=== PATIENT | male | born 1935 | race Caucasian/White ===

== ENCOUNTER 2017-11-25 12:14 | Day surgery (SDC) | payer MEDICARE, BC ==
--- NOTE | 2017-11-25 08:57 | HP ---
DATE OF SURGERY: 11/25/2017 HISTORY OF PRESENT ILLNESS: The patient is an 82 year-old who had prior cholecystectomy in the past, had some loose stools. He had history of some chronic pancreatitis in the past. He has incarcerated ventral hernia lower epigastrium. He may also have an additional defect at the umbilical area. Given these areas I feel he will benefit from laparoscopic repair possible open with mesh. PAST MEDICAL HISTORY: He has had some chronic pancreas problems. He had some hypertension, hypothyroidism, some reflux, hypercholesterolemia, some benign prostatic hypertrophy, history of chronic pancreatitis, emphysema, history of some low back pain. PAST SURGICAL HISTORY: He has had cholecystectomy in the past. He had cataract surgery in the past. MEDICATIONS: Valproic acid, Claritin, vitamin D3, fish oil, famotidine, levothyroxine, lisinopril, magnesium, melatonin, pantoprazole, saw palmetto, selenium, simvastatin, super B complex with vitamin C, Tamsulosin, vitamin B6, vitamin B12, zinc. ALLERGIES: CIPRO, FLAGYL, LIVE SMALL POX VACCINE, TETANUS TOXID. FAMILY HISTORY: Heart disease, diabetes. SOCIAL HISTORY: Former smoker. No alcohol abuse. REVIEW OF SYSTEMS: Twelve systems reviewed per admission assessment. No chest pain or palpitations other systems negative or noncontributory as above and per preadmission questionnaire. PHYSICAL EXAMINATION: GENERAL: No acute distress. HEENT: Sclerae nonicteric. NECK: No JVD. CHEST: Equal excursion, nonlabored breathing. CVS: Regular rate and rhythm. ABDOMEN: Soft. He has hernia in the mid abdomen along the prior incisional area from prior cholecystectomy, maybe a small area umbilical area. IMPRESSION: Given these defects I feel he would benefit from laparoscopic repair of incarcerated ventral hernia with mesh possible open with mesh, general risk of anesthesia, deep venous thrombosis, pulmonary embolism, pneumonia, general risk of hematoma or seroma formation, risk of ingrown hair or suture reaction, risk of mesh infection possibly requiring removal, overall risk of hernia recurrence, risk of adhesion or scar formation, obstruction or ileus postoperatively, remote risk of mesh fracture or failure possibly creating issue with the viscera or other structures possibly requiring other procedure, ongoing morbidity, risk of mesh infection possibly requiring removal, general risk of aches, pains, burning or numbness possible long term care phlebotomist or chronic in nature as well as overall risk of anesthesia, deep venous thrombosis, pulmonary embolism pneumonia. He understands all of the above but not limited to, will proceed with laparoscopic repair of incarcerated ventral hernia with mesh possible open.
[~2017-11-25 12:14] MED LIST: CEFAZOLIN 2 GM-D5W BAG** 2 GM/50 ML ML IV SCH; Lactated Ringers 1,000 ML IV ONE; Lactated Ringers 1,000 ML IV SCH; Sensorcaine 0.25% 10 ML ONE
[2017-11-25] MEDS ORDERED: BREVIBLOC 100 MG/10 ML IV ONE (12:15)
[2017-11-25] MEDS ORDERED: DIPRIVAN 200 MG/20 ML IV ONE (12:15)
[2017-11-25] MEDS ORDERED: Zemuron 100 MG/10 ML IJ ONE ×2 (12:15)
[2017-11-25] MEDS ORDERED: BRIDION 200MG/2ML IV ONE (12:15)
[2017-11-25] MEDS ORDERED: ROBINUL IV ONE (12:15)
[2017-11-25] MEDS ORDERED: Zofran 4 MG/2 ML VIAL IV ONE (12:15)
[2017-11-25] MEDS ORDERED: Sensorcaine 0.25% 10 ML ONE (15:03)
[2017-11-25 15:52] LABS: Appearance CLEAR (CLEAR)
[2017-11-25 15:54] LABS: Bilirubin NEGATIVE (NEGATIVE); Blood TRACE NON-HEM Ery/ul (0-5); Glucose NEGATIVE (NEGATIVE); Ketones NEGATIVE (NEGATIVE); Leukocyte Esterase NEGATIVE (NEGATIVE); Nitrite NEGATIVE (NEGATIVE); Protein,Urine Dip NEGATIVE (Negative); Specific Gravity 1.005 (1.005-1.025); Urobilinogen NORMAL mg/dL (0-1)
[2017-11-25 15:56] LABS: WBC 0-2 /HPF (0-5)
[2017-11-25 15:59] LABS: Epithelial Cells RARE /HPF (FEW)
[2017-11-25] MEDS ORDERED: MORPHINE SULFATE 10 MG/ML ONE (16:46)
[2017-11-25] MEDS ORDERED: SUBLIMAZE 100 MCG/2 ML ONE (16:51)
[2017-11-25] MEDS ORDERED: ZOCOR 20MG PO SCH (22:00)
[2017-11-25] MEDS ORDERED: Zestril 20 MG*** 20 MG, hydroDIURIL 25 MG*** 12.5 MG PO SCH ×2 (22:00)
[2017-11-25] MEDS ORDERED: Flomax 0.4 MG PO SCH (22:00)
[2017-11-25] MEDS ORDERED: Zofran 4 MG/2 ML VIAL IV PRN (22:49)
[2017-11-25] MEDS ORDERED: MORPHINE SULFATE 4 MG INJ ONE (22:58)
[2017-11-25] MEDS ORDERED: hydroDIURIL 25 MG ONE (22:58)
[2017-11-25] MEDS ORDERED: Zestril 20 MG ONE (22:59)
[2017-11-25] MEDS ORDERED: D5W/0.45NS W/ 20mEq KCl 1000 ML 1,000 ML IV SCH (23:00)
[2017-11-25] MEDS: MORPHINE SULFATE 2 MG INJ IV PRN (23:12)
[2017-11-26] MEDS: MORPHINE SULFATE 2 MG INJ IV PRN ×2 (01:18→04:24)
[2017-11-26] MEDS: NORCO 5/325 MG PO PRN ×2 (03:08→13:46)
--- NOTE | 2017-11-26 09:13 | OP ---
SURGERY DATE/TIME: 11/25/2017 1457 PREOPERATIVE DIAGNOSIS: Ventral incisional hernia incarcerated. POSTOPERATIVE DIAGNOSIS: Ventral incisional hernia including second site separate umbilical area hernia both incarcerated both incarcerated ventral incisional hernia and separate umbilical hernia with mesh repair en bloc with single piece of mesh. PROCEDURE: Laparoscopic repair incarcerated ventral incisional hernia with mesh. SURGEON: Dr. Otis Ross. CARD GRINDER: Sang Shore, Medical Student III. ANESTHESIA: General. ESTIMATED BLOOD LOSS: Minimal. INDICATIONS: As noted above. Risks and benefits explained in detail and not limited to and consent obtained. DESCRIPTION OF PROCEDURE AND FINDINGS: The patient is taken to the operating room. General anesthesia induced. After official time out and no disagreement with planned procedure, prepped and draped in usual sterile fashion. A transverse incision made in mid abdomen. Veress needle inserted and tested with saline. Pneumoperitoneum accomplished, opening pressure 0 to 15. After this was done 5 mm bladeless port and camera inserted left mid abdomen. A 5 mm left upper quadrant port and 5 mm left lower quadrant under direct vision of the camera. Later a 5 mm right mid abdomen port placed. At this point the patient is noted to have two separate incarcerated ventral and incisional hernia. Omentum carefully reduced out with LigaSure device. Sharp dissection laparoscopic valeriy this was followed by a second separate site of small umbilical hernia more inferiorly. There was also incarcerated fat reduced out of it and removed. It was felt that both of these hernias repaired en bloc together with one single piece of mesh rather than two separate pieces of mesh. The area was measured out. There is no ACRO mesh available here today. I feel the most appropriate size mesh that was wide enough 20 cm long mesh was cut to appropriate dimensions with the nearly 13 cm long by about 10 cm wide. The mesh was cut the Ventralight coated mesh was used. Using spinal incision reducing the pressure down to the 18 range the edges of the hernias were marked. Again, the most appropriate size mesh available at this facility was used once the mesh four quadrant 0 Ethibond sutures placed externally. Prior to placing the mesh inside the abdomen some transfascial sutures were placed with 0 and #1 PDS and closed in the [place] fashion back together. The 12 port placed along the defect allowing the roll mesh to be inserted after it had been wet. However, four sutures were then pulled up the four quadrants in tension-free manner with the suture passer through four separate stab wounds with the skin. Once they were pulled up and the mesh in nice and flat manner the capture tacker was then used to try to tack the mesh circumferentially around about 1 cm or so apart around the edges. SorbaFix mesh placed more closer to the [place] fascial defect. Mesh is nice and flat in tension-free manner. A small piece of devitalized fat that had been incarcerated in umbilical hernia was removed through the 10/11 port and left upper quadrant closed with puncture closure device with #1 Vicryl. Pneumoperitoneum decompressed. Mesh nice and flat. There had been no viscera up in the mesh just incarcerated omentum and preperitoneal fat. After decompressing the wounds were irrigated out. Skin incision closed with 4-0 Vicryl. Stab wound is closed with Steri-Strips. Sterile dressing applied. 0.25% Marcaine local injected along the skin incision fascial defect. Anesthesia applied tap blocks during the procedure. The patient tolerated the procedure well. There were no immediate complications. Findings discussed with the family out in the waiting area. He will get abdominal binder for pain control at home when he is more comfortable on oral pain medication.
[2017-11-26] MEDS ORDERED: VITA-BEE WITH C PO SCH (10:00)
[2017-11-26] MEDS ORDERED: ENOXAPARIN SODIUM SQ SCH (10:00)
[2017-11-26] MEDS ORDERED: FISH OIL 1,000 MG CAPSULE PO SCH (10:00)
[2017-11-26] MEDS ORDERED: CLARITIN 10 MG PO PRN (10:09)
[2017-11-26] MEDS ORDERED: NON-FORMULARY ITEM (Melatonin/Pyridoxine Hcl (B6) [Melatonin 3 Mg Tablet] 1 EACH) PO PRN (10:09)
[2017-11-26] MEDS ORDERED: VITAMIN D PO SCH (10:30)
[2017-11-26] MEDS ORDERED: Pepcid 20 MG PO SCH (10:45)
[2017-11-26] MEDS ORDERED: VITAMIN B-12 100 MCG PO SCH (10:45)
[2017-11-26] MEDS ORDERED: Zinc Gluconate 50 MG PO SCH (11:00)
[2017-11-26] MEDS ORDERED: SYNTHROID 75 MCG PO SCH (11:00)
[2017-11-26] MEDS ORDERED: Protonix 40MG Tablet PO SCH (11:00)
[2017-11-26] MEDS ORDERED: Vitamin B-6 (Pyridoxine) 100 MG PO SCH (11:15)
[2017-11-26] MEDS ORDERED: MAG-OX 400 PO SCH (11:15)
[2017-11-26] MEDS ORDERED: MEDICATION INTERVENTION MC PRN (11:19)
[2017-11-26 12:01] VITALS: BP 115/69; PULSE 108; O2SAT 97
[2017-11-26] MEDS ORDERED: NON-FORMULARY ITEM (Magnesium [Magnesium] 250 MG) PO SCH (22:00)
[2017-11-26] MEDS ORDERED: NON-FORMULARY ITEM (Lisinopril/Hydrochlorothiazide [Lisinopril-Hctz 20-12.5 Mg Tab] 1 EACH PO SCH (22:00)
[2017-11-26] MEDS ORDERED: CHOLECALCIFEROL 2000 UNIT PO SCH (22:00)
[2017-11-27] MEDS ORDERED: Protonix 40MG Tablet PO SCH (10:00)
[2017-11-27] MEDS ORDERED: FLAXSEED OIL 1000 MG PO SCH (10:00)
[2017-11-27] MEDS ORDERED: Zinc Gluconate 50 MG PO SCH (10:00)
[2017-11-27] MEDS ORDERED: ZINC PICOLIN PO SCH (10:00)
[2017-11-27] MEDS ORDERED: SAW PALMETTO XTR PO SCH (10:00)
[2017-11-27] MEDS ORDERED: B COMPLEX WITH VITAMIN C PO SCH (10:00)
[2017-11-27] MEDS ORDERED: PYRIDOXINE HCL 25 MG PO SCH (10:00)
[2017-11-27] MEDS ORDERED: SELENOMETHIONINE 200 MCG PO SCH (10:00)
[2017-11-27] MEDS ORDERED: ALPHA LIPOIC ACID 200 MG PO SCH (10:00)
[2017-11-27] MEDS ORDERED: NON-FORMULARY ITEM (Cyanocobalamin/Folic Acid [Vitamin B12-Folic Acid Tablet] 1 EACH) PO SCH (10:00)
[2017-11-27] MEDS ORDERED: SYNTHROID 75 MCG PO SCH (10:00)
[2017-11-27] MEDS ORDERED: NON-FORMULARY ITEM (Famotidine [Pepcid] 40 MG) PO SCH (10:00)
== END 2017-11-26 13:00 | disposition home or self-care (01) ==
LOC: SDC 12:14 → MED SURG 18:00 → SDC 11-26 12:00 → MED SURG 11-26 12:00 → SDC 11-26 13:00
PROVIDERS: ATTEND Surgery
DX: K43.2 Incisional hernia without obstruction or gangrene (principal); K42.9 Umbilical hernia without obstruction or gangrene; Z79.899 Other long term (current) drug therapy
CPT/HCPCS: 36415; 64488; 71046; 76937; 80053; 81000; 85025; 87086; 94150; 94250; 94640; 94760; 99100; G0378; J0690; J1650; J2270; J2405; J2704; J3010; J7609; L0625; A9270-GY

== ENCOUNTER 2017-11-26 12:00 | Observation (INO) | payer MEDICARE, BC ==
[2017-11-26] MEDS ORDERED: CLARITIN 10 MG PO PRN (14:45)
[2017-11-26] MEDS ORDERED: Zofran 4 MG/2 ML VIAL IV PRN (14:45)
[2017-11-26] MEDS ORDERED: MORPHINE SULFATE 4 MG INJ IV PRN ×2 (14:48→15:45)
[2017-11-26] MEDS ORDERED: PROVENTIL 2.5 MG/3 ML NEB IH PRN (15:10)
[2017-11-26] MEDS: NORCO 5/325 MG PO PRN (18:49)
[2017-11-26] MEDS: Zestril 20 MG*** 20 MG, hydroDIURIL 25 MG*** 12.5 MG PO SCH ×2 (21:26)
[2017-11-26] MEDS: Flomax 0.4 MG PO SCH (21:29)
[2017-11-26] MEDS: MAG-OX 400 PO SCH (21:30)
[2017-11-26] MEDS: VITAMIN D PO SCH (21:30)
[2017-11-26] MEDS: ZOCOR 20MG PO SCH (21:31)
[2017-11-26] MEDS: Sodium Chloride 0.9% 10 ML FLUSH Syringe IV SCH (21:36)
[2017-11-27] MEDS: NORCO 5/325 MG PO PRN ×3 (05:25→19:00)
[2017-11-27] MEDS: Sodium Chloride 0.9% 10 ML FLUSH Syringe IV SCH ×3 (05:28→21:40)
[2017-11-27] MEDS: VITAMIN D PO SCH ×2 (09:57→21:30)
[2017-11-27] MEDS: Pepcid 20 MG PO SCH (09:57)
[2017-11-27] MEDS: VITA-BEE WITH C PO SCH (09:57)
[2017-11-27] MEDS: FISH OIL 1,000 MG CAPSULE PO SCH (09:57)
[2017-11-27] MEDS: SYNTHROID 75 MCG PO SCH (09:57)
[2017-11-27] MEDS: Zinc Gluconate 50 MG PO SCH (09:58)
[2017-11-27] MEDS: Protonix 40MG Tablet PO SCH (09:58)
[2017-11-27] MEDS: Vitamin B-6 (Pyridoxine) 100 MG PO SCH (09:58)
[2017-11-27] MEDS: VITAMIN B-12 100 MCG PO SCH (10:00)
[2017-11-27] MEDS: MAG-OX 400 PO SCH ×2 (10:01→21:29)
[2017-11-27] MEDS: ENOXAPARIN SODIUM SQ SCH (10:01)
--- NOTE | 2017-11-27 14:09 | XRAY ---
Indication: Hypoxia. Comparison: October 02 PA/lateral chest less inflated today accentuating previous bibasilar fibrosis/scarring. New small left base effusion. Remaining heart and lungs unremarkable.
--- NOTE | 2017-11-27 16:17 | PCM.HP ---
History of Present Illness - Chief Complaint Chief Complaint: status post lap. umbilical hernia repair with mesh History of Present Illness: is a 82 year old male pt of Dr. Grimm who had an umbilical hernia repair with Dr. Lopez yesterday. Post operatively he was hypoxemic so was admitted for further observation. Currently he is on 2L NC and has been up out of bed to walk. He is tolerating po without vomiting, has burping, but no flatulence. Pt does have a former smoking history. He does not wear any O2 at home. - Review of Systems Ears, Nose, & Throat: Nose Congestion (uses Afrin every night) Respiratory: No Short Of Breath Cardiac: No Chest Pain Abdominal/Gastrointestinal: Abdominal Pain (post op pain wiht movement) Genitourinary Symptoms: Frequency, Hesitancy Musculoskeletal: Myalgias (chronic) Psychological: Depression (since his passed 3 yrs ago), No Suicidal Ideations All Other Systems: Reviewed and Negative Medications & Allergies Home Medications: Home Medication List Alpha Lipoic Acid 200 mg PO DAILY 10/01/17 [History Confirmed 11/26/17] B-Complex with Vitamin C [Super B with Vit C] 1 each PO DAILY 10/01/17 [History Confirmed 11/26/17] Cholecalciferol (Vitamin D3) [D3 Dots] 2,000 unit PO BID 10/01/17 [History Confirmed 11/26/17] Cyanocobalamin/Folic Acid [Vitamin S55-Abzjs Acid Tablet] 1 each PO DAILY [History Confirmed 11/26/17] Famotidine [Pepcid] 40 mg PO DAILY 10/01/17 [History Confirmed 11/26/17] Flaxseed Oil [Flax Seed Oil] 1,000 mg PO DAILY 10/01/17 [History Confirmed 11/26] Levothyroxine Sodium 75 Mcg [Synthroid 75 Mcg] 75 mcg PO DAILY 10/01/17 [ History Confirmed 11/26/17] Lisinopril/Hydrochlorothiazide [Lisinopril-Hctz 20-12.5 mg Tab] 1 each PO HS [History Confirmed 11/26/17] Loratadine 10 mg [Claritin 10 mg] 10 mg PO DAILY PRN PRN 10/01/17 [ History Confirmed 11/26/17] Magnesium 250 mg PO BID 10/01/17 [History Confirmed 11/26/17] Melatonin/Pyridoxine HCl (B6) [Melatonin 3 mg Tablet] 1 each PO HSPRN PRN [History Confirmed 11/26/17] [place]-3 Fatty Acids/Fish Oil [Fish Oil 1,000 mg Capsule] 1,000 mg PO DAILY 10/01/17 [History Confirmed 11/26/17] PANTOPRAZOLE 40 mg Tablet [Protonix 40MG Tablet] 40 mg PO DAILY 10/01/17 [ History Confirmed 11/26/17] Pyridoxine HCl (Vitamin B6) [Vitamin B-6] 25 mg PO DAILY 10/01/17 [History Confirmed 11/26/17] Saw [place] Xtr/Zinc Picolin [Saw [place] Capsule] 1 each PO DAILY 10/01/17 [ History Confirmed 11/26/17] Selenomethionine [Selenium] 200 mcg PO DAILY 10/01/17 [History Confirmed ] Simvastatin 40 mg [Zocor 40 mg] 40 mg PO HS 10/01/17 [History Confirmed 11/26/17 ] Tamsulosin HCl 0.4 mg [Flomax 0.4 MG] 0.4 mg PO HS 10/01/17 [History Confirmed 11/26/17] Zinc Gluconate 50 mg [Zinc Gluconate 50 MG] 50 mg PO DAILY 10/01/17 [ History Confirmed 11/26/17] Allergies/Adverse Reactions: Allergies Allergy/AdvReac Type Severity Reaction Status Date / Time smallpox vaccine,live AdvReac Severe high fever Verified 11/26/17 13:16 tetanus and diphtheria AdvReac Severe high fever Verified 11/26/17 13:16 toxoids ciprofloxacin [From Cipro] AdvReac Intermediate nightmares Verified 11/26/17 13: 16 metronidazole [From Flagyl] AdvReac Intermediate nightmares Verified 11/26/17 13 :16 - Past Medical History Past Medical History: Yes Neurological History: No Pertinent History ENT History: Cataracts Cardiac History: High Cholesterol, Hypertension Respiratory History: COPD Endocrine Medical History: No Pertinent History, Hypothyroidism Musculoskelatal History: Arthritis, Other GI Medical History: GERD, Gallbladder Disease, Hernia, Pancreatitis History: No Pertinent History Pyscho-Social History: No Pertinent History Male Reproductive Disorders: Prostate Problems Comment: URI 3-4 weeks ago- no cough now. herniated disc with sciatic pain - Past Surgical History Past Surgical History: Yes Neuro Surgical History: No Pertinent History Cardiac History: No Pertinent History Respiratory Surgery: No Pertinent History GI Surgical History: Cholecystectomy, Hernia Repair Genitourinary Surgical Hx: No Pertinent History Musculskeletal Surgical Hx: No Pertinent History Male Surgical History: No Pertinent History - Social History Smoking Status: Never smoker Exposure to second hand smoke: No Alcohol: None Drug Use: none - Physical Exam Vital Signs: Vital Signs - 24 hr Temp Pulse Resp BP Pulse Ox 11/27/17 11:33 98.6 F 100 H 18 98/54 95 11/27/17 08:00 99.2 F 104 H 20 103/58 94 L 11/27/17 06:58 71 18 93 L 11/27/17 03:41 99.5 F 100 H 18 116/59 95 11/27/17 00:00 99.0 F 100 H 18 134/59 95 11/26/17 19:57 101 H 20 94 L 11/26/17 19:40 98.1 F 107 H 20 147/74 94 L Oxygen-Last 24 hours O2 Percentage 2 Liters = 28% O2 Percentage 3 Liters = 32% O2 Percentage 3 Liters = 32% O2 Percentage 3 Liters = 32% O2 Percentage 3 Liters = 32% General Appearance: no apparent distress, alert Neurologic Exam: oriented x 3, cooperative Eye Exam: eyes nml inspection Ears, Nose, Throat Exam: moist mucous membranes Neck Exam: normal inspection, non-tender, No lymphadenopathy Respiratory Exam: normal breath sounds, rhonchi (RLL), No crackles/rales, No wheezing Cardiovascular Exam: regular rate/rhythm, normal heart sounds, No murmur Gastrointestinal/Abdomen Exam: soft, tenderness, other (hypoactive, but present , bowel sounds dressing c/d/i in the midline. abdominal binder present and not totally removed for exam) Back Exam: normal inspection, No rash Extremity Exam: normal inspection, No pedal edema, No swelling Skin Exam: normal color, warm, dry, No rash Results - Radiology Impressions Radiology Exams & Impressions: Radiology Procedures Category Date Time Status CHEST 2 VIEWS (PA AND LAT) Urgent Exams 11/27/17 13:59 Completed - Other Procedures and Tests Respiratory Therapy 11/26/17 15:13 Oxygen NASAL CANNULA 2 lpm 11/26/17 17:00 Incentive Spirometry Assessmen TID Assessment/Plan (1) Hypoxia Current Visit: No Status: Acute Onset Date: ~11/26/17 Assessment & Plan: Clinically looks good, aside from desaturation without O2. He does not have any chest pain or persistent tachypnea concerning for PE. I think related to his underlying, usually not clinically apparent, COPD. Will go ahead and keep trying to wean tonight. Did discuss the possibility of going home tomorrow on O2 if needed. Code(s): R09.02 - HYPOXEMIA (2) S/P hernia repair Current Visit: No Status: Acute Onset Date: ~11/26/17 Assessment & Plan: POD #1. Overall doing well. Code(s): Z98.890 - OTHER SPECIFIED POSTPROCEDURAL STATES; Z87.19 - PERSONAL HISTORY OF OTHER DISEASES OF THE DIGESTIVE SYSTEM (3) COPD (chronic obstructive pulmonary disease) Current Visit: Yes Status: Acute Qualifiers: COPD type: unspecified COPD Qualified Code(s): J44.9 - Chronic obstructive pulmonary disease, unspecified (4) BPH (benign prostatic hyperplasia) Current Visit: Yes Status: Chronic Qualifiers: Lower urinary tract symptom presence: symptoms present Lower urinary tract symptom detail: urinary frequency Qualified Code(s): N40.1 - Benign prostatic hyperplasia with lower urinary tract symptoms; R35.0 - Frequency of micturition ; R35.0 - Frequency of micturition Code(s): N40.0 - BENIGN PROSTATIC HYPERPLASIA WITHOUT LOWER URINRY TRACT SYMP
[2017-11-27] MEDS ORDERED: Flonase NASAL NS SCH ×2 (17:00→17:47)
[2017-11-27] MEDS: ZOCOR 20MG PO SCH (21:29)
[2017-11-27] MEDS: Flomax 0.4 MG PO SCH (21:29)
[2017-11-27] MEDS: Zestril 20 MG*** 20 MG, hydroDIURIL 25 MG*** 12.5 MG PO SCH ×2 (21:30)
[2017-11-28 05:37] LABS: BASOPHIL % 0.3 % (0.0-0.4); Basophil (Absolute #) 0.02 (0-0.4); Eosinophil % 5.2 % (0.00-5.0); Eosinophil (Absolute #) 0.39 (0-0.5); Granulocyte Absolute (ANC) 4.37 (1.4-6.9); Granulocytes % 58.8 % (36.0-66.0); Hematocrit 36.5 % (42-50); Hemoglobin 12.2 gm/dl (12.5-18.0); Lymphocytes % 22.8 % (24.0-44.0); Mean Cell Volume 92.4 fl (78-100); Mean Corpuscular Hgb Concent. 33.4 g/dl (32-36); Mean Platelet Volume 9.3 fl (6-9.5); Monocyte (Absolute #) 0.96 (0.0-1.3); Monocytes % 12.9 % (0.0-12.0); Platelet Count 197 K/mm3 (150-450); Red Blood Count 3.95 M/mm3 (4.1-5.6); Red Cell Distribution Width 13.8 % (11.5-14.0); White Blood Count 7.4 K/mm3 (4.0-10.5)
[2017-11-28 05:44] LABS: Mean Corpuscular Hemoglobin 30.8 pg (26-32)
[2017-11-28 06:03] LABS: ALBUMIN 3.5 g/dL (3.5-5.0); ALKALINE PHOSPHATASE 66 U/L (38-126); ANION GAP 10.7 MEQ/L (5-15); BLOOD UREA NITROGEN 18 mg/dL (9-20); CHLORIDE 97 mmol/L (98-107); Calcium 9.2 mg/dL (8.4-10.2); Carbon Dioxide 30 mmol/L (22-30); Creatinine 1 1.04 mg/dL (0.66-1.25); Glucose 115 mg/dL (74-106); Potassium 3.8 mmol/L (3.5-5.1); SGOT/AST 29 U/L (17-59); SGPT/ALT 26 U/L (0-50); SODIUM 134 mmol/L (137-145); Total Protein 6.1 g/dL (6.3-8.2)
--- NOTE | 2017-11-28 09:26 | PCM.NOTE ---
Date and Time: 11/28/17923 Subjective Assessment: patient is doing well this morning, tolerating po intake. denies nausea or vomiting, states he has not passed flatus or had a bowel movement since surgery. has had some shortness of breath. only receiving oxygen therapy at this time. Objective Exam General Appearance: no apparent distress, alert Skin Exam: normal color, warm, dry Respiratory Exam: diminished breath sounds Cardiovascular Exam: regular rate/rhythm, normal heart sounds Gastrointestinal/Abdomen Exam: soft, No tenderness, No mass OBJECTIVE DATA Vital Signs: Vital Signs - 24 hr Temp Pulse Resp BP Pulse Ox 11/28/17 08:00 20 11/28/17 07:20 97.8 F 90 20 117/58 93 L 11/28/17 04:00 98.4 F 92 H 18 111/57 95 11/27/17 23:52 98.5 F 96 H 18 131/60 94 L 11/27/17 19:33 98.9 F 106 H 18 120/57 93 L 11/27/17 19:17 102 H 17 94 L 11/27/17 16:00 98.8 F 107 H 20 108/61 92 L 11/27/17 11:33 98.6 F 100 H 18 98/54 95 Oxygen-Last 24 hours O2 Percentage 2 Liters = 28% O2 Percentage 2 Liters = 28% O2 Percentage 2 Liters = 28% O2 Percentage 2 Liters = 28% O2 Percentage 2 Liters = 28% O2 Percentage 2 Liters = 28% Pain Assessment - Last Documented Pain Intensity 8 Pain Scale Used FLACC Intake and Output: Intake & Output 11/25/17 11/26/17 11/27/17 11/28/17 11:59 11:59 11:59 11:59 Intake Total 600 1140 Output Total 1000 2400 Balance -400 -1260 Weight 74.7 kg Lab Results: Lab Results-Last 24 Hours 11/28/17 11/28/17 Range/Units 05:19 05:19 WBC 7.4 (4.0-10.5) K/mm3 RBC 3.95 L (4.1-5.6) M/mm3 Hgb 12.2 L (12.5-18.0) gm/dl Hct 36.5 L (42-50) % MCV 92.4 (78-100) fl MCH 30.8 (26-32) pg MCHC 33.4 (32-36) g/dl RDW 13.8 (11.5-14.0) % Plt Count 197 (150-450) K/mm3 MPV 9.3 (6-9.5) fl Gran % 58.8 (36.0-66.0) % Eos # (Auto) 0.39 (0-0.5) Absolute Lymphs (auto) 1.70 (1.0-4.6) Absolute Monos (auto) 0.96 (0.0-1.3) Lymphocytes % 22.8 L (24.0-44.0) % Monocytes % 12.9 H (0.0-12.0) % Eosinophils % 5.2 H (0.00-5.0) % Basophils % 0.3 (0.0-0.4) % Absolute Granulocytes 4.37 (1.4-6.9) Basophils # 0.02 (0-0.4) Sodium 134 L (137-145) mmol/L Potassium 3.8 (3.5-5.1) mmol/L Chloride 97 L (98-107) mmol/L Carbon Dioxide 30 (22-30) mmol/L Anion Gap 10.7 (5-15) MEQ/L BUN 18 (9-20) mg/dL Creatinine 1.04 (0.66-1.25) mg/dL Estimated GFR > 60.0 ML/MIN Glucose 115 H (74-106) mg/dL Calcium 9.2 (8.4-10.2) mg/dL Total Bilirubin 0.60 (0.2-1.3) mg/dL AST 29 (17-59) U/L ALT 26 (0-50) U/L Alkaline Phosphatase 66 (38-126) U/L Serum Total Protein 6.1 L (6.3-8.2) g/dL Albumin 3.5 (3.5-5.0) g/dL Radiology Exams: Radiology Procedures Category Date Time Status CHEST 2 VIEWS (PA AND LAT) Urgent Exams 11/27/17 13:59 Completed Assessment/Plan (1) COPD (chronic obstructive pulmonary disease) Current Visit: Yes Status: Acute Qualifiers: COPD type: unspecified COPD Qualified Code(s): J44.9 - Chronic obstructive pulmonary disease, unspecified Assessment & Plan: will schedule neb treatments. checking sat off oxygen currently, was 97% on 2L NC (2) Hypoxia Current Visit: No Status: Acute Onset Date: ~11/26/17 Code(s): R09.02 - HYPOXEMIA (3) S/P hernia repair Current Visit: No Status: Acute Onset Date: ~11/26/17 Code(s): Z98.890 - OTHER SPECIFIED POSTPROCEDURAL STATES; Z87.19 - PERSONAL HISTORY OF OTHER DISEASES OF THE DIGESTIVE SYSTEM
[2017-11-28] MEDS: FISH OIL 1,000 MG CAPSULE PO SCH (10:11)
[2017-11-28] MEDS: Pepcid 20 MG PO SCH (10:11)
[2017-11-28] MEDS: SYNTHROID 75 MCG PO SCH (10:11)
[2017-11-28] MEDS: ENOXAPARIN SODIUM SQ SCH (10:11)
[2017-11-28] MEDS: Protonix 40MG Tablet PO SCH (10:11)
[2017-11-28] MEDS: VITAMIN D PO SCH (10:11)
[2017-11-28] MEDS: VITA-BEE WITH C PO SCH (10:12)
[2017-11-28] MEDS: VITAMIN B-12 100 MCG PO SCH (10:12)
[2017-11-28] MEDS: MAG-OX 400 PO SCH (10:12)
[2017-11-28] MEDS: Vitamin B-6 (Pyridoxine) 100 MG PO SCH (10:13)
[2017-11-28] MEDS: Zinc Gluconate 50 MG PO SCH (10:13)
[2017-11-28] MEDS: NORCO 5/325 MG PO PRN (10:18)
[2017-11-28] MEDS: Sodium Chloride 0.9% 10 ML FLUSH Syringe IV SCH ×2 (10:20→14:14)
[2017-11-28] MEDS ORDERED: DUONEB 0.5-3 MG/3 ml Neb IH SCH (11:00)
[2017-11-28 11:20] VITALS: BP 112/60; PULSE 68; O2SAT 96
[2017-11-28] MEDS ORDERED: CITROMA 296 ML PO ONE (13:05)
--- NOTE | 2017-11-28 15:31 | PCM.DS ---
Discharge Summary Date of Admission: 11/26/17 12:00 Admitting Physician: RYAN KTAZ Consults: Consults on Case 11/26/17 14:00 Consult Physician ROUTINE Primary Care Provider: ISABEL GIORDANO Allergies Allergies smallpox vaccine,live Adverse Reaction (Severe, Verified 11/26/17 13:16) high fever states "marilyn fever,hospitalized for days before going into the service" tetanus and diphtheria toxoids Adverse Reaction (Severe, Verified 11/26/17 13:16 ) high fever states "hospitalized for days with high fever,before going into the service" ciprofloxacin [From Cipro] Adverse Reaction (Intermediate, Verified 11/26/17 13: 16) nightmares states "nightmares" metronidazole [From Flagyl] Adverse Reaction (Intermediate, Verified 11/26/17 13 :16) [facility] Summary - Hospital Course Hospital Course: patient was admitted following hernia repair, initially was for observation but had low oxygen saturations. denies cough, has some dyspnea with exertion but this is not new. chest xray showed mild left effusion but nothing acute. required supplemental oxygen, has been qualified for oxygen at this time - Vitals & Intake/Output Vital Signs: Vital Signs Temperature 97.8 F 11/28/17 11:19 Pulse Rate 68 11/28/17 11:19 Respiratory Rate 20 11/28/17 12:00 Blood Pressure 112/60 11/28/17 11:19 O2 Sat by Pulse Oximetry 96 11/28/17 11:19 Oxygen-Last Documented O2 Percentage 2 Liters = 28% Intake & Output: Intake & Output 11/26/17 11/27/17 11/28/17 11/29/17 11:59 11:59 11:59 11:59 Intake Total 600 1260 420 Output Total 1000 2700 650 Balance -400 -1440 -230 Weight 74.7 kg - Lab Result Diagrams: 11/28/17 05:19 11/28/17 05:19 Lab Results-Last 24 Hrs: Lab Results-Last 24 Hours 11/28/17 11/28/17 Range/Units 05:19 05:19 WBC 7.4 (4.0-10.5) K/mm3 RBC 3.95 L (4.1-5.6) M/mm3 Hgb 12.2 L (12.5-18.0) gm/dl Hct 36.5 L (42-50) % MCV 92.4 (78-100) fl MCH 30.8 (26-32) pg MCHC 33.4 (32-36) g/dl RDW 13.8 (11.5-14.0) % Plt Count 197 (150-450) K/mm3 MPV 9.3 (6-9.5) fl Gran % 58.8 (36.0-66.0) % Eos # (Auto) 0.39 (0-0.5) Absolute Lymphs (auto) 1.70 (1.0-4.6) Absolute Monos (auto) 0.96 (0.0-1.3) Lymphocytes % 22.8 L (24.0-44.0) % Monocytes % 12.9 H (0.0-12.0) % Eosinophils % 5.2 H (0.00-5.0) % Basophils % 0.3 (0.0-0.4) % Absolute Granulocytes 4.37 (1.4-6.9) Basophils # 0.02 (0-0.4) Sodium 134 L (137-145) mmol/L Potassium 3.8 (3.5-5.1) mmol/L Chloride 97 L (98-107) mmol/L Carbon Dioxide 30 (22-30) mmol/L Anion Gap 10.7 (5-15) MEQ/L BUN 18 (9-20) mg/dL Creatinine 1.04 (0.66-1.25) mg/dL Estimated GFR > 60.0 ML/MIN Glucose 115 H (74-106) mg/dL Calcium 9.2 (8.4-10.2) mg/dL Total Bilirubin 0.60 (0.2-1.3) mg/dL AST 29 (17-59) U/L ALT 26 (0-50) U/L Alkaline Phosphatase 66 (38-126) U/L Serum Total Protein 6.1 L (6.3-8.2) g/dL Albumin 3.5 (3.5-5.0) g/dL - Radiology Exams Ordered Rad Exams-Entire Visit: Radiology Procedures Category Date Time Status CHEST 2 VIEWS (PA AND LAT) Urgent Exams 11/27/17 13:59 Completed - Procedures and Test Procedures and Tests throughout Hospitalization: Therapy Orders & Screens 11/26/17 15:00 OT Screen per Nursing Assess ONCE Comment: Protocol Order Physician Instructions: Greater than 3 points order OT Admission Screening Reason For Exam: Triggered on Admission Diagnosis: status post lap. umbilical hernia repair with mesh Open Wound/Cellutlitis/Pressure Ulcers: Yes Acute Fx/ORIF/Change in wt bearing status: No Severe MUSCULOSKELETAL pain: No ADL Dysfunction: Yes Acute CVA w/Hemiparesis/Hemiplegia: No Decreased Functional Mobility/Strength: Yes Sprain/Strain: No Acute Post-op Mobility Dysfunction: Yes Total Points: 12 PT Screen per Nursing Assess ONCE Comment: Protocol Order Physician Instructions: Greater than 3 points order PT Admission Screenin Reason For Exam: Triggered on Admission Diagnosis: status post lap. umbilical hernia repair with mesh Open Wound/Cellutlitis/Pressure Ulcers: Yes Acute Fx/ORIF/Change in wt bearing status: No Severe MUSCULOSKELETAL pain: No ADL Dysfunction: Yes Acute CVA w/Hemiparesis/Hemiplegia: No Decreased Functional Mobility/Strength: Yes Sprain/Strain: No Acute Post-op Mobility Dysfunction: Yes Total Points: 12 11/26/17 15:12 Respiratory Nebulizer UD Comment: Diagnosis: status post lap. umbilical hernia repair with mesh 11/26/17 15:13 Oxygen NASAL CANNULA 2 lpm Comment: Diagnosis: status post lap. umbilical hernia repair with mesh 11/26/17 17:00 Incentive Spirometry Assessmen TID Comment: Discharge Exam General Appearance: no apparent distress, alert Respiratory Exam: normal breath sounds, lungs clear, diminished breath sounds, No respiratory distress Cardiovascular Exam: regular rate/rhythm, normal heart sounds Gastrointestinal/Abdomen Exam: soft, No tenderness, No mass Extremity Exam: normal inspection, normal range of motion Final Diagnosis/Problem List - Final Discharge Diagnosis/Problem (1) COPD (chronic obstructive pulmonary disease) Current Visit: Yes Status: Acute (2) S/P hernia repair Current Visit: No Status: Acute Onset Date: ~11/26/17 (3) Chronic hypoxemic respiratory failure Current Visit: Yes Status: Acute Assessment & Plan: qualified for home oxygen - Discharge Disposition: Home, Self-Care Condition: Good Prescriptions: New Hydrocodone/Acetaminophen [[place] 5-325 Tablet] 1 each PO Q4H PRN PRN 3 Days # 24 tablet MDD 12 PRN Reason: pain. Continue Pyridoxine HCl (Vitamin B6) [Vitamin B-6] 25 mg PO DAILY Cyanocobalamin/Folic Acid [Vitamin N06-Kxydt Acid Tablet] 1 each PO DAILY Zinc Gluconate 50 mg [Zinc Gluconate 50 MG] 50 mg PO DAILY Tamsulosin HCl 0.4 mg [Flomax 0.4 MG] 0.4 mg PO HS B-Complex with Vitamin C [Super B with Vit C] 1 each PO DAILY Simvastatin 40 mg [Zocor 40 mg] 40 mg PO HS Selenomethionine [Selenium] 200 mcg PO DAILY [place] Xtr/Zinc Picolin [Saw [place] Ext 160 mg Cap] 1 each PO DAILY PANTOPRAZOLE 40 mg Tablet [Protonix 40MG Tablet] 40 mg PO DAILY Melatonin/Pyridoxine HCl (B6) [Melatonin 3 mg Tablet] 1 each PO HSPRN PRN PRN Reason: Allergies Magnesium 250 mg PO BID Lisinopril/Hydrochlorothiazide [Lisinopril-Hctz 20-12.5 mg Tab] 1 each PO HS Levothyroxine Sodium 75 Mcg [Synthroid 75 Mcg] 75 mcg PO DAILY [place]-3 Fatty Acids/Fish Oil [Fish Oil 1,000 mg Capsule] 1,000 mg PO DAILY Flaxseed Oil [Flax Seed Oil] 1,000 mg PO DAILY Famotidine [Pepcid] 40 mg PO DAILY Cholecalciferol (Vitamin D3) [D3 Dots] 2,000 unit PO BID Loratadine 10 mg [Claritin 10 mg] 10 mg PO DAILY PRN PRN PRN Reason: Allergies Alpha Lipoic Acid 200 mg PO DAILY Instructions: Hernia Repair (DC), Exacerbation of COPD (DC) Additional Instructions: [facility] WILL CALL YOU TO ARRANGE YOUR FIRST VISIT. YOU MAY REACH THEM AT EXT [phone]. [facility] WHEN YOU ARE HOME SO THEY CAN DELIVER THE REST OF YOUR OXYGEN EQUIPMENT TO YOUR HOME. [facility]S PHONE NUMBER IS . Follow up with: ISABEL GIORDANO MD [Primary Care Provider] - 12/02/17 2:45 pm ENEDELIA KATZ [COURTESY STAFF] - 12/02/17 9:20 am ([facility]) Forms: Discharge Instructions
== END 2017-11-28 17:15 | disposition home or self-care (01) ==
LOC: MED SURG 12:00 → UNDOADMOB 12:00 → MED SURG 13:00 → UNDODISOB 11-28 17:15
PROVIDERS: ADMIT Surgery; ATTEND Surgery
DX: J44.9 Chronic obstructive pulmonary disease, unspecified (principal); Z98.890 Other specified postprocedural states; J96.11 Chronic respiratory failure with hypoxia; K21.9 Gastro-esophageal reflux disease without esophagitis; N40.1 Benign prostatic hyperplasia with lower urinary tract symptoms; M19.90 Unspecified osteoarthritis, unspecified site; Z79.899 Other long term (current) drug therapy; Z87.19 Personal history of other diseases of the digestive system
CPT/HCPCS: 36415; 71046; 80053; 85025; 94150; 94640; 94760; G0378; J1650; J2405; J7609; A9270-GY

== ENCOUNTER 2018-12-17 17:02 | Emergency (ER) | payer MEDICARE, BC ==
--- NOTE | 2018-12-17 17:59 | ERPHSYRPT ---
- History of Present Illness Historian: patient Exam Limitations: no limitations Patient Subjective Stated Complaint: Pt states "I was mowing and I slipped and fell onto the back of the seat accross my belly and it hurts. I have a bruise on my belly on the right side. I went to [facility] and they sent me over here. " Triage Nursing Assessment: Pt presented through the front doors, alert and orietented X 3, skin pwd. Pt ambulates with a hunched over gait, guarding his abdomen. slight bruising noted to the right side of abdomen. Timing/Duration: day(s) (33 days ago) Activities at Onset: other (fell striking his belly on see the lawn more) Quality: aching Abdominal Pain Onset Location: other (right lower lateral abdomen) Pain Radiation: no radiation Modifying Factors: Improves With: nothing Associated Symptoms: No back, No chest pain, No diaphoresis, No diarrhea, No fever/chills, No fatigue, No headache, No heartburn, No loss of appetite, No nausea, No neck pain, No rash, No shortness of breath, No syncope, No testicular pain, No vomiting, No weakness Previous symptoms: no prior history Hx Tetanus, Diphtheria Vaccination/Date Given: No Hx Influenza Vaccination/Date Given: Yes Hx Pneumococcal Vaccination/Date Given: Yes Immunizations Up to Date: Yes <SINGH MIRAMONTES - Last Filed: 12/17/18 19:41> <SEBASTIAN ROMAN - Last Filed: 12/17/18 20:30> - History of Present Illness Time Seen by Provider: 12/17/18 17:47 Physician History: Is 83-year-old white male with history of cataracts, hypothyroidism, COPD, hypercholesterolemia, but high blood pressure, GERD, atherosclerotic coronary artery disease. Patient arrives with complaint of lower abdominal pain especially in the right lateral lower abdomen symptoms for 3 days. Patient states that he fell across his lawn more landing on his feet with his abdomen he has bruising on the right lateral abdomen lower abdomen. He states he has increasing pain in the lower abdomen. He has no vomiting no diarrhea he. Apparently presented to [facility] clinic however was referred to the emergency room. Past medical history includes cataracts, hypothyroidism, COPD, hypercholesterolemia, high blood pressure, GERD, gallbladder disease, hernia, pancreatitis, prostate problems, arthritis, herniated disc with sciatica, coronary artery disease with stents. Past medical history includes cataracts, tonsillectomy adenoidectomy, cholecystectomy, hernia repair, cardiac stents. (SINGH MIRAMONTES) Allergies/Adverse Reactions: smallpox vaccine,live Adverse Reaction (Severe, Verified 11/26/17 13:16) high fever states "marilyn fever,hospitalized for days before going into the service" tetanus and diphtheria toxoids Adverse Reaction (Severe, Verified 11/26/17 13:16 ) high fever states "hospitalized for days with high fever,before going into the service" ciprofloxacin [From Cipro] Adverse Reaction (Intermediate, Verified 11/26/17 13: 16) nightmares states "nightmares" metronidazole [From Flagyl] Adverse Reaction (Intermediate, Verified 11/26/17 13 :16) nightmares Home Medications: Alpha Lipoic Acid 200 mg PO DAILY 10/01/17 [History] B-Complex with Vitamin C [Super B with Vit C] 1 each PO DAILY 10/01/17 [History] Cholecalciferol (Vitamin D3) [D3 Dots] 2,000 unit PO BID 10/01/17 [History] Cyanocobalamin/Folic Acid [Vitamin J80-Ktkvr Acid Tablet] 1 each PO DAILY [History] Famotidine [Pepcid] 40 mg PO DAILY 10/01/17 [History] Flaxseed Oil [Flax Seed Oil] 1,000 mg PO DAILY 10/01/17 [History] Levothyroxine Sodium 75 Mcg [Synthroid 75 Mcg] 75 mcg PO DAILY 10/01/17 [ History] Lisinopril/Hydrochlorothiazide [Lisinopril-Hctz 20-12.5 mg Tab] 1 each PO HS [History] Loratadine 10 mg [Claritin 10 mg] 10 mg PO DAILY PRN PRN 10/01/17 [History ] Magnesium 250 mg PO BID 10/01/17 [History] Melatonin/Pyridoxine HCl (B6) [Melatonin 3 mg Tablet] 1 each PO HSPRN PRN [History] [place]-3 Fatty Acids/Fish Oil [Fish Oil 1,000 mg Capsule] 1,000 mg PO DAILY 10/01/17 [History] PANTOPRAZOLE 40 mg Tablet [Protonix 40MG Tablet] 40 mg PO DAILY 10/01/17 [ History] Pyridoxine HCl (Vitamin B6) [Vitamin B-6] 25 mg PO DAILY 10/01/17 [History] Saw [place] Xtr/Zinc Picolin [Saw [place] Ext 160 mg Cap] 1 each PO DAILY [History] Selenomethionine [Selenium] 200 mcg PO DAILY 10/01/17 [History] Simvastatin 40 mg [Zocor 40 mg] 40 mg PO HS 10/01/17 [History] Tamsulosin HCl 0.4 mg [Flomax 0.4 MG] 0.4 mg PO HS 10/01/17 [History] Zinc Gluconate 50 mg [Zinc Gluconate 50 MG] 50 mg PO DAILY 10/01/17 [History ] - Review of Systems Constitutional: No Fever, No Chills Eyes: No Symptoms Ears, Nose, & Throat: No Symptoms Respiratory: No Cough, No Dyspnea Cardiac: No Chest Pain, No Edema, No Syncope Abdominal/Gastrointestinal: Abdominal Pain Genitourinary Symptoms: No Dysuria Musculoskeletal: No Back Pain, No Neck Pain Skin: Other (yellow bruising right lateral lower abdomen) Neurological: No Dizziness, No Focal Weakness, No Sensory Changes Psychological: No Symptoms Endocrine: No Symptoms All Other Systems: Reviewed and Negative <SINGH MIRAMONTES - Last Filed: 12/17/18 19:41> - Past Medical History Pertinent Past Medical History: Yes Neurological History: No Pertinent History ENT History: Cataracts Cardiac History: High Cholesterol, Hypertension Respiratory History: COPD Endocrine Medical History: No Pertinent History, Hypothyroidism Musculoskeletal History: Arthritis, Other GI Medical History: GERD, Gallbladder Disease, Hernia, Pancreatitis History: No Pertinent History Psycho-Social History: No Pertinent History Male Reproductive Disorders: Prostate Problems Other Medical History: URI 3-4 weeks ago- no cough now. herniated disc with sciatic pain - Past Surgical History Past Surgical History: Yes Neuro Surgical History: No Pertinent History Cardiac: No Pertinent History Respiratory: No Pertinent History Gastrointestinal: Cholecystectomy, Hernia Repair Genitourinary: No Pertinent History Musculoskeletal: No Pertinent History Male Surgical History: No Pertinent History - Social History Smoking Status: Former smoker Exposure to second hand smoke: No Drug Use: none Patient Lives Alone: Yes <SINGH MIRAMONTES - Last Filed: 12/17/18 19:41> - Physical Exam General Appearance: moderate distress, alert, other (patient with pain with movement right lower lateral abdomen) Eye Exam: PERRL/EOMI, eyes nml inspection Ears, Nose, Throat Exam: normal ENT inspection, pharynx normal, moist mucous membranes Neck Exam: normal inspection, non-tender, supple, full range of motion Respiratory Exam: normal breath sounds, lungs clear, No respiratory distress Cardiovascular Exam: regular rate/rhythm, normal heart sounds Gastrointestinal/Abdomen Exam: soft, tenderness (tenderness right lower lateral abdomen with movement and palpation), ecchymosis (yellow bruising right lower lateral abdomen), No distention, No mass, No guarding Back Exam: normal inspection, normal range of motion, No CVA tenderness, No vertebral tenderness Extremity Exam: normal inspection, normal range of motion, pelvis stable Neurologic Exam: alert, oriented x 3, cooperative, garage mechanic II-XII nml as tested, normal mood/affect, nml cerebellar function, sensation nml, No motor deficits Skin Exam: normal color, warm, dry SpO2 Interpretation: normal (94%) SpO2: 94 <SINGH MIRAMONTES - Last Filed: 12/17/18 19:41> - Nursing Vital Signs Nursing Vital Signs: Initial Vital Signs Temperature 97.6 F 12/17/18 17:08 Pulse Rate 92 H 12/17/18 17:08 Respiratory Rate 16 12/17/18 17:08 Blood Pressure 157/81 12/17/18 17:08 O2 Sat by Pulse Oximetry 94 L 12/17/18 17:08 Pain Scale Pain Intensity 4 - Course Nursing assessment & vital signs reviewed: Yes <CHAROKYLIESINGH RIVERA - Last Filed: 12/17/18 19:41> Ordered Tests: Active Orders 24 hr Category Date Time Status IV Insertion STAT Care 12/17/18 17:55 Active ABDOMEN AND PELVIS W/0 CONTRAS [CT] Stat Exams 12/17/18 18:31 Taken AMYLASE Stat Lab 12/17/18 18:10 Completed CBC W DIFF Stat Lab 12/17/18 18:10 Completed CMP Stat Lab 12/17/18 18:10 Completed CULTURE,URINE Stat Lab 12/17/18 19:42 Received LIPASE Stat Lab 12/17/18 18:10 Completed UA W/RFX UR CULTURE Stat Lab 12/17/18 19:42 Completed Medication Summary Generic Name Dose Route Start Last Admin Trade Name Alexisq PRN Reason Stop Dose Admin Sodium Chloride 1,000 mls @ 100 mls/hr 12/17/18 18:00 12/17/18 18:07 Sodium Chloride 0.9% 1000 Ml IV 01/16/19 17:59 100 mls/hr .Q10H CODY Administration Ceftriaxone Sodium/Dextrose 1 g in 50 mls @ 100 mls/hr 12/17/18 20:26 Rocephin 1 Gm-D5w 50 Ml Bag IV 12/17/18 20:55 STAT STA Trimethoprim/Sulfamethoxazole 1 tab 12/17/18 20:26 Bactrim Ds Tablet PO 12/17/18 20:27 STAT STA Lab/Rad Data: Laboratory Result Diagrams 12/17/18 18:10 12/17/18 18:10 Laboratory Results 12/17/18 12/17/18 12/17/18 Range/Units 19:42 18:10 18:10 WBC 7.5 (4.0-10.5) K/mm3 RBC 4.15 (4.1-5.6) M/mm3 Hgb 13.4 (12.5-18.0) gm/dl Hct 38.7 L (42-50) % MCV 93.3 (78-100) fl MCH 32.3 H (26-32) pg MCHC 34.6 (32-36) g/dl RDW 13.8 (11.5-14.0) % Plt Count 221 (150-450) K/mm3 MPV 9.0 (6-9.5) fl Gran % 57.7 (36.0-66.0) % Eos # (Auto) 0.27 (0-0.5) Absolute Lymphs (auto) 1.83 (1.0-4.6) Absolute Monos (auto) 1.05 (0.0-1.3) Lymphocytes % 24.4 (24.0-44.0) % Monocytes % 14.0 H (0.0-12.0) % Eosinophils % 3.6 (0.00-5.0) % Basophils % 0.3 (0.0-0.4) % Absolute Granulocytes 4.34 (1.4-6.9) Basophils # 0.02 (0-0.4) Sodium 136 L (137-145) mmol/L Potassium 4.2 (3.5-5.1) mmol/L Chloride 98 (98-107) mmol/L Carbon Dioxide 26 (22-30) mmol/L Anion Gap 16.7 H (5-15) MEQ/L BUN 40 H (9-20) mg/dL Creatinine 1.82 H (0.66-1.25) mg/dL Estimated GFR 38.2 ML/MIN Glucose 109 H (74-106) mg/dL Calcium 9.9 (8.4-10.2) mg/dL Total Bilirubin 0.50 (0.2-1.3) mg/dL AST 27 (17-59) U/L ALT 28 (0-50) U/L Alkaline Phosphatase 77 (38-126) U/L Serum Total Protein 7.4 (6.3-8.2) g/dL Albumin 4.4 (3.5-5.0) g/dL Amylase 157 H (30-110) U/L Lipase 165 (23-300) U/L Urine Color OFELIA (YELLOW) Urine Appearance CLOUDY (CLEAR) Urine pH 6.0 (5-6) Ur Specific [place] 1.012 (1.005-1.025) Urine Protein NEGATIVE (Negative) Urine Ketones NEGATIVE (NEGATIVE) Urine Blood NEGATIVE (0-5) Florin/ul Urine Nitrite NEGATIVE (NEGATIVE) Urine Bilirubin NEGATIVE (NEGATIVE) Urine Urobilinogen NEGATIVE (0-1) mg/dL Ur Leukocyte Esterase MODERATE (NEGATIVE) Urine WBC (Auto) 26-50 (0-5) /HPF Urine RBC (Auto) NONE (0-2) /HPF U Epithel Cells (Auto) NONE (FEW) /HPF Urine Bacteria (Auto) NONE (NEGATIVE) /HPF Urine Mucus (Auto) SLIGHT (NEGATIVE) /HPF Urine Culture Reflexed YES (NO) Urine Glucose NEGATIVE (NEGATIVE) mg/dL - Progress Progress: improved <SINGH MIRAMONTES - Last Filed: 12/17/18 19:41> - Progress Counseled pt/family regarding: lab results, diagnosis, need for follow-up, rad results <SEBASTIAN ROMAN - Last Filed: 12/17/18 20:30> - Progress Progress Note: 12/17/18 19:40 Patient's case is discussed with Dr. Roman. Dr. Roman will assume care of this patient secondary to shift change. ( SINGH MIRAMONTES) 12/17/18 20:28 ct scan abd/pelvis-no acute process. (SEBASTIAN ROMAN) <SINGH MIRAMONTES - Last Filed: 12/17/18 19:41> - Departure Departure Disposition: Home Critical Care Time: No <SEBASTIAN ROMAN - Last Filed: 12/17/18 20:30> - Departure Clinical Impression: Fall, Abdominal wall contusion, UTI (urinary tract infection) Condition: Stable Referrals: ISABEL GIORDANO MD [Primary Care Provider] - Additional Instructions: drink plenty of fluids. follow up with primary doctor for persistent symptoms Prescriptions: Smz/Tmp Ds Tablet [Bactrim Ds Tablet] 1 udtab PO BID #14 tablet
[2018-12-17] MEDS ORDERED: Sodium Chloride 0.9% 1000 ML 1,000 ML IV SCH (18:00)
[2018-12-17] MEDS ORDERED: Sodium Chloride 0.9% 1000 ML 1,000 ML ONE (18:06)
[2018-12-17 18:18] LABS: BASOPHIL % 0.3 % (0.0-0.4); Basophil (Absolute #) 0.02 (0-0.4); Eosinophil % 3.6 % (0.00-5.0); Eosinophil (Absolute #) 0.27 (0-0.5); Granulocyte Absolute (ANC) 4.34 (1.4-6.9); Granulocytes % 57.7 % (36.0-66.0); Hematocrit 38.7 % (42-50); Hemoglobin 13.4 gm/dl (12.5-18.0); Lymphocyte (Absolute #) 1.83 (1.0-4.6); Lymphocytes % 24.4 % (24.0-44.0); Mean Cell Volume 93.3 fl (78-100); Mean Corpuscular Hemoglobin 32.3 pg (26-32); Mean Corpuscular Hgb Concent. 34.6 g/dl (32-36); Monocyte (Absolute #) 1.05 (0.0-1.3); Platelet Count 221 K/mm3 (150-450); Red Blood Count 4.15 M/mm3 (4.1-5.6); Red Cell Distribution Width 13.8 % (11.5-14.0); White Blood Count 7.5 K/mm3 (4.0-10.5)
[2018-12-17 18:24] LABS: ALBUMIN 4.4 g/dL (3.5-5.0); ANION GAP 16.7 MEQ/L (5-15); BILIRUBIN,TOTAL 0.5 mg/dL (0.2-1.3); Calcium 9.9 mg/dL (8.4-10.2); Creatinine 1 1.82 mg/dL (0.66-1.25); Potassium 4.2 mmol/L (3.5-5.1); Total Protein 7.4 g/dL (6.3-8.2)
[2018-12-17 19:51] LABS: Appearance CLOUDY (CLEAR); Bilirubin NEGATIVE (NEGATIVE); Blood NEGATIVE Ery/ul (0-5); Glucose NEGATIVE (NEGATIVE); Ketones NEGATIVE (NEGATIVE); Leukocyte Esterase MODERATE (NEGATIVE); Mucus SLIGHT /HPF (NEGATIVE); Nitrite NEGATIVE (NEGATIVE); Protein,Urine Dip NEGATIVE (Negative); Specific Gravity 1.012 (1.005-1.025); Urobilinogen NEGATIVE mg/dL (0-1); WBC 26-50 /HPF (0-5)
[2018-12-17] MEDS ORDERED: BACTRIM DS TABLET PO STA (20:26)
[2018-12-17] MEDS ORDERED: ROCEPHIN 1 Gm-D5w 50 ml Bag** 1 G/50 ML IVPB IV STA (20:26)
[2018-12-17] MEDS ORDERED: BACTRIM DS TABLET PO ONE (20:32)
[2018-12-17] MEDS ORDERED: ROCEPHIN 1 Gm-D5w 50 ml Bag** 1 G/50 ML IVPB IV ONE (20:39)
[2018-12-17 23:46] VITALS: BP 119/83; PULSE 88; O2SAT 93
--- NOTE | 2018-12-18 08:51 | XRAY ---
Indication: Right abdomen pain following fall 5 days ago. Multiple contiguous axial images obtained through the abdomen and pelvis without contrast as ordered. Comparison: September 02, 2017. Lung bases again demonstrates extensive pulmonary emphysema with scattered fibrosis/scarring and left lower lobe calcified granuloma. No infiltrate or effusion. Heart is not enlarged. Stable small hiatal hernia. Noncontrasted stomach and bowel loops again nonobstructed. Normal appendix. New mild sigmoid diverticulosis without diverticulitis. No free fluid/air. Stable hepatic cysts, chronic pancreatitis calcifications, hepatic/splenic calcified granulomas, and cholecystectomy. Remaining liver, pancreas, spleen, adrenal glands, kidneys, ureters, and bladder appear unremarkable for noncontrast exam. Stable heavy scattered vascular calcifications with distal abdominal aorta and common iliac artery ectasia. Osseous structures again demonstrates degenerative changes throughout the thoracolumbar spine including minimal grade 1 L4 spondylolisthesis. Stable remote T12 compression deformity. There has been interval ventral hernia repair. Impression: 1. New sigmoid diverticulosis without diverticulitis. 2. Interval ventral hernia repair without complications. 3. Stable hiatal hernia, hepatic cysts, chronic pancreatitis calcifications, pulmonary emphysema, pulmonary fibrosis/scarring, multilevel degenerative spondylosis including grade 1 L4 spondylolisthesis, remote T12 compression deformity, arteriosclerotic disease, and evidence for old granulomatous disease. CT DI 19.19
--- NOTE | 2018-12-18 08:59 | XRAY ---
Indication: Right-sided pain following fall. Comparison: November 27, 2017. Portable apical lordotic chest again demonstrates bibasilar fibrosis/scarring. Remaining heart and lungs unremarkable. Bony thorax intact again with mild degenerative changes. No new/acute findings.
== END 2018-12-17 23:58 | disposition home or self-care (01) ==
LOC: ED 17:02
DX: S30.1XXA Contusion of abdominal wall, initial encounter (principal); N39.0 Urinary tract infection, site not specified; W01.198A Fall on same level from slipping, tripping and stumbling with subsequent striking against other object, initial encounter; Y93.89 Activity, other specified; Y92.89 Other specified places as the place of occurrence of the external cause; E03.9 Hypothyroidism, unspecified; I10 Essential (primary) hypertension; J44.9 Chronic obstructive pulmonary disease, unspecified; I25.10 Atherosclerotic heart disease of native coronary artery without angina pectoris; E78.00 Pure hypercholesterolemia, unspecified; K21.9 Gastro-esophageal reflux disease without esophagitis; Z79.899 Other long term (current) drug therapy
CPT/HCPCS: 36415; 71045; 74176; 80053; 81001; 82150; 83690; 85025; 87086; 96360; 96365; 99284; J0696; A9270-GY